=== PATIENT | male | born 1960 | race Caucasian/White ===

== ENCOUNTER 2017-05-01 11:58 | Emergency (ER) | payer BC ==
[~2017-05-01] VITALS: Ht 180.3 cm; Wt 95.3 kg
[2017-05-01 14:31] VITALS: BP 145/102
== END 2017-05-01 15:26 | disposition home or self-care (01) ==
LOC: ER 11:58
DX: T18.9XXA Foreign body of alimentary tract, part unspecified, initial encounter (principal); E78.5 Hyperlipidemia, unspecified; I10 Essential (primary) hypertension; X58.XXXA Exposure to other specified factors, initial encounter; Y93.89 Activity, other specified; Y99.8 Other external cause status; Y92.89 Other specified places as the place of occurrence of the external cause
CPT/HCPCS: 74000; 74176

== ENCOUNTER 2023-11-23 11:35 | Emergency (ER) | payer BC, OTHER ==
[~2023-11-23] VITALS: Ht 177.8 cm; Wt 104.3 kg
[2023-11-23 12:54] LABS: Urine Bacteria None Seen /hpf (None Seen)
[2023-11-23 12:54] LABS: Basophils # (auto) 0 10 ^3/uL (0-0.2); Basophils % (auto) 0.4 % (0.0-2.0); Eosinophils # (auto) 0.1 10 ^3/uL (0-0.8); Hematocrit 48.2 % (41.0-53.0); Hemoglobin 16.4 g/dL (13.5-17.5); Lymphocytes # (auto) 1.9 10 ^3/uL (0.4-5.4); Lymphocytes % (auto) 34.4 % (10.0-50.0); Mean Corpuscular Hemoglobin 30.7 pg (28.0-32.0); Mean Corpuscular Volume 90.4 fL (80.0-100.0); Monocytes # (auto) 0.6 10 ^3/uL (0-1.3); Monocytes % (auto) 10.2 % (0.0-12.0); Nucleated Red Blood Cells % 0.1 %; Red Blood Cells 5.33 10^6/uL (4.5-5.90); Red Cell Distribution Width 13.5 % (11.8-14.3); White Blood Cell 5.6 10^3/uL (4.4-10.8)
[2023-11-23 12:59] LABS: Urine Blood Negative /uL (Negative); Urine Clarity Clear (Clear); Urine Color Light-Yellow (Yellow); Urine Protein, UAD Negative (Negative); Urine Specific Gravity 1.011 (1.001-1.035); Urine Urobilinogen Normal (Negative); Urine WBC <1 /hpf (0 - 3)
[2023-11-23 13:17] LABS: Alanine Aminotransferase 26 U/L (7-40); Albumin 4.1 g/dL (3.2-4.8); Alkaline Phosphatase 60 U/L (46-116); Anion Gap 5 (5-15); Aspartate Aminotransferase 19 U/L (13-40); BUN/Creatinine Ratio 9.5 (10.0-20.0); Blood Urea Nitrogen 10 mg/dL (9-23); Calcium 9.3 mg/dL (8.7-10.4); Carbon Dioxide 25 mmol/L (20-30); Chloride 108 mmol/L (98-107); Glucose 96 mg/dL (74-106); Lipase 53 U/L (12-53); Magnesium 2.2 mg/dL (1.6-2.6); Potassium 4.3 mmol/L (3.5-5.1); Sodium 138 mmol/L (136-145)
[2023-11-23 13:18] LABS: Bilirubin, Total 0.7 mg/dL (0.2-1.0); Total Protein 6.9 g/dL (5.7-8.2)
[2023-11-23] MEDS: SODIUM CHLORIDE 0.9% 1,000 ML IV ONE (13:42)
[2023-11-23] MEDS: IOHEXOL 300 MG/ML 100ML BOTTLE IJ ONE (13:57)
[2023-11-23] MEDS ORDERED: SENN1CAP4 PO (14:42)
[2023-11-23] MEDS ORDERED: MAGN400T40 PO (14:42)
[2023-11-23 14:59] VITALS: BP 163/105; PULSE 72; RESP 16; TEMP 98; O2SAT 100
== END 2023-11-23 15:09 | disposition home or self-care (01) ==
LOC: ER 11:37
DX: K59.09 Other constipation (principal); R10.31 Right lower quadrant pain; I10 Essential (primary) hypertension; E78.5 Hyperlipidemia, unspecified
CPT/HCPCS: 36415; 71046; 74177; 80053; 81001; 83690; 83735; 85025; 96360; 99285; J7030; Q9967